=== PATIENT | male | born 1960 | race Caucasian/White ===

== ENCOUNTER 2020-02-14 07:19 | Emergency (ER) | payer OTHER ==
[~2020-02-14] VITALS: Ht 175.3 cm; Wt 100.0 kg
[2020-02-14] MEDS ORDERED: ACET-2865 PO (07:24)
[2020-02-14] MEDS ORDERED: GABA-1181 PO (07:24)
[2020-02-14] MEDS ORDERED: METF-961 PO (07:24)
[2020-02-14] MEDS ORDERED: AMLO-258 PO (07:24)
[2020-02-14] MEDS ORDERED: LOSA50TA37 PO (07:24)
[2020-02-14 08:10] LABS: BASOPHILS % (AUTO) 0.8 % (0.0-2.0); HEMATOCRIT 38.8 % (41-53); LYMPHOCYTES # (AUTO) 1.5 K/uL (1.0-4.8); LYMPHOCYTES % (AUTO) 23.4 % (22.0-44.0); MEAN CORPUSCULAR HEMOGLOBIN 28.7 pg (26.0-34.0); MEAN CORPUSCULAR HGB CONC 33.6 G/dL (31.0-37.0); MEAN CORPUSCULAR VOLUME 86 fL (80-100); MONOCYTES # (AUTO) 0.3 K/uL (0.1-1.0); MONOCYTES % (AUTO) 5.3 % (2.0-9.0); NEUTROPHILS # (AUTO) 4.3 K/uL (1.8-7.7); NEUTROPHILS % (AUTO) 67.5 % (40.0-70.0); PLATELET COUNT (AUTO) 230 K/uL (150-450); RED BLOOD CELL COUNT(AUTO) 4.53 MIL/uL (4.50-5.90); RED CELL DISTRIBUTION WIDTH 14.3 % (11.5-14.5)
[2020-02-14 08:21] LABS: ANION GAP 10 mmol/L (8-16); CALCIUM, TOTAL 9.2 mg/dL (8.8-10.5); CARBON DIOXIDE 25 mmol/L (22-29); CHLORIDE 104 mmol/L (98-107); CREATININE 0.84 mg/dL (0.60-1.30); GLOMERULAR FILTR. RATE CALC > 60 mL/min (>60); GLUCOSE,RANDOM 171 mg/dL (70-110); POTASSIUM 3.5 mmol/L (3.5-5.1); SODIUM SERUM 139 mmol/L (136-145); UREA NITROGEN, BLOOD 16 mg/dL (7-18)
[2020-02-14 08:24] LABS: PROTHROMBIN TIME 10.5 SEC (9.4-11.6)
[2020-02-14 08:28] LABS: ALANINE AMINOTRANSFERASE 55 U/L (12-78); ALBUMIN 4.1 g/dL (3.4-5.0); ALKALINE PHOSPHATASE 66 U/L (46-116); ASPARTATE AMINOTRANSFERASE 21 U/L (15-37); BILIRUBIN,TOTAL 0.6 mg/dL (0.1-1.0); CREATINE KINASE, TOTAL ONLY 65 U/L (39-308); TOTAL PROTEIN, SERUM 8.5 g/dL (6.4-8.2)
[2020-02-14] MEDS ORDERED: SODIUM CHLORIDE 0.9% 1,000 ML IV ONE (08:30)
[2020-02-14 08:40] LABS: APPEARANCE,URINE CLEAR (CLEAR); BILIRUBIN,URINE NEGATIVE (NEGATIVE); GLUCOSE, URINE (UA) 250 mg/dL (NEGATIVE); KETONES,URINE NEGATIVE (NEGATIVE); LEUKOCYTE ESTERASE ,URINE TRACE (NEGATIVE); NITRATE,URINE NEGATIVE (NEGATIVE); OCCULT BLOOD,URINE NEGATIVE (NEGATIVE); PROTEIN,URINE NEGATIVE (NEGATIVE)
[2020-02-14 08:40] LABS: B-TYPE NATRIURETIC PEPTIDE 40 pg/mL (0-100)
[2020-02-14 08:58] LABS: BACTERIA,URINE None Seen /HPF (None Seen); RBC,URINE 0-2 /HPF (0-2); WBC,URINE 0-2 /HPF (0-5)
[2020-02-14] MEDS ORDERED: LORazepam 1 MG TABLET PO ONE (09:00)
[2020-02-14 11:30] VITALS: BP 146/77
== END 2020-02-14 11:35 | disposition home or self-care (01) ==
LOC: EMS 07:26
DX: F41.9 Anxiety disorder, unspecified (principal); E11.9 Type 2 diabetes mellitus without complications; I10 Essential (primary) hypertension; Z79.84 Long term (current) use of oral hypoglycemic drugs; Z79.899 Other long term (current) drug therapy; R79.1 Abnormal coagulation profile
CPT/HCPCS: 36415; 71045; 80053; 81001; 82550; 82962; 83880; 84484; 85025; 85610; 85730; 93005; 96360; 96361; 99285; J7030

== ENCOUNTER 2024-11-15 21:43 | Emergency (ER) | payer OTHER ==
[~2024-11-15] VITALS: Ht 172.7 cm; Wt 100.0 kg
[~2024-11-15 21:43] MED LIST: ACET-2247 PO; AMLO-258 PO; GABA-1181 PO; LOSA-382 PO; METF-1185 PO
[2024-11-15 21:53] VITALS: TEMP 98.1
[2024-11-16 02:30] LABS: BASOPHILS % (AUTO) 0.4 % (0.0-2.0); EOSINOPHILS % (AUTO) 0.2 % (1.0-6.0); HEMATOCRIT 40.8 % (41-53); LYMPHOCYTES # (AUTO) 0.9 K/uL (1.0-4.8); LYMPHOCYTES % (AUTO) 8.9 % (22.0-44.0); MEAN CORPUSCULAR HEMOGLOBIN 28.9 pg (26.0-34.0); MEAN CORPUSCULAR HGB CONC 34.2 G/dL (31.0-37.0); MEAN CORPUSCULAR VOLUME 84 fL (80-100); MONOCYTES # (AUTO) 0.4 K/uL (0.1-1.0); MONOCYTES % (AUTO) 3.3 % (2.0-9.0); NEUTROPHILS # (AUTO) 9.2 K/uL (1.8-7.7); PLATELET COUNT (AUTO) 242 K/uL (150-450); RED BLOOD CELL COUNT(AUTO) 4.83 MIL/uL (4.50-5.90); WHITE BLOOD COUNT (AUTO) 10.6 K/uL (4.5-11.0)
[2024-11-16] MEDS: SODIUM CHLORIDE 0.9% 1,000 ML IV ONE (02:31)
[2024-11-16 02:36] LABS: NEUTROPHILS % (AUTO) 87.2 % (40.0-70.0)
[2024-11-16 02:40] LABS: ANION GAP 8 mmol/L (8-16); CALCIUM, TOTAL 9.3 mg/dL (8.8-10.5); CARBON DIOXIDE 28 mmol/L (22-29); CHLORIDE 97 mmol/L (98-107); CREATININE 0.82 mg/dL (0.60-1.30); GLOMERULAR FILTR. RATE CALC > 60 mL/min (>60); GLUCOSE,RANDOM 180 mg/dL (70-110); POTASSIUM 3.9 mmol/L (3.5-5.1); SODIUM SERUM 133 mmol/L (136-145); UREA NITROGEN, BLOOD 10 mg/dL (7-18)
[2024-11-16 02:47] LABS: ALANINE AMINOTRANSFERASE 54 U/L (12-78); ALBUMIN 4.2 g/dL (3.4-5.0); ALCOHOL, BLOOD (SERUM) < 3 mg/dL (0-10); ALKALINE PHOSPHATASE 93 U/L (46-116); ASPARTATE AMINOTRANSFERASE 23 U/L (15-37); TOTAL PROTEIN, SERUM 8.4 g/dL (6.4-8.2)
[2024-11-16 02:51] LABS: TROPONIN I-HIGH SENSITIVITY 8 ng/L (<76)
[2024-11-16] MEDS: HydrALAZINE HCL 20 MG/ML VIAL IVP ONE (04:57)
[2024-11-16 05:19] VITALS: BP 150/76; PULSE 90; RESP 16; O2SAT 97
== END 2024-11-16 05:45 | disposition home or self-care (01) ==
LOC: EMS 21:45
DX: F41.9 Anxiety disorder, unspecified (principal); T40.425A Adverse effect of tramadol, initial encounter; E11.9 Type 2 diabetes mellitus without complications; I10 Essential (primary) hypertension; F10.90 Alcohol use, unspecified, uncomplicated; Z79.899 Other long term (current) drug therapy; Y90.9 Presence of alcohol in blood, level not specified; Y92.89 Other specified places as the place of occurrence of the external cause
CPT/HCPCS: 99284; 96374; 96361; 80048; 80076; 82962; 84484; 85025; 93005; G0480; J7030; J0360; 36415-L1; 36415-TC